=== PATIENT | female | born 1955 | race Caucasian/White ===

== ENCOUNTER → 2025-01-27 | Outpatient (CLI) | payer OTHER, MEDICARE ==
[~2025-01-27] MED LIST: ACET500; AMOCLA875 PO; BUPR150T2 PO; ERGO400; HYDR1TAB94 PO; Hydrocodone-Ap1 EA23 PO; IBUP400; LEVSOD100 PO; LOSA25; OLME20-12. PO; PROM25 PO; ROSU5; Vitamin C100 M1
[2025-01-27 16:02] LABS: Source, Urine Clean Catch
[2025-01-27 17:39] LABS: Bilirubin, Urine Neg (Neg); Color, Urine Yellow (P-Yellow); Glucose Qualitative, Urine Neg (Neg); Ketones, Urine Neg (Neg); Leukocyte Esterase, Urine 2+ (Neg); Protein, Urine 1+ (Neg); Specific Gravity, Urine 1.020 (1.003-1.022); Urobilinogen, Urine NORM (Normal)
== END ==
LOC: LAB 16:01 → LAB SHORT 16:01
PROVIDERS: Urology
DX: N30.00 Acute cystitis without hematuria (principal); N39.41 Urge incontinence
CPT/HCPCS: 81001; 87077; 87086; 87186